=== PATIENT | female | born 1945 | race Caucasian/White ===

== ENCOUNTER 2021-08-13 20:13 | Emergency (ER) | payer MEDICARE ==
[2021-08-13] MEDS ORDERED: Sodium Chloride 0.9% 1000 ML 1,000 ML IV SCH (21:30)
[2021-08-13] MEDS ORDERED: Sodium Chloride 0.9% 1000 ML 1,000 ML ONE (21:37)
--- NOTE | 2021-08-13 21:40 | ERPHSYRPT ---
- History of Present Illness Time Seen by Provider: 08/13/21 20:20 Source: patient Exam Limitations: no limitations Patient Subjective Stated Complaint: I fell in the bathroom and hit the side of my face on the bathtub and it bounced off and I hit the other side of my face on the tub Triage Nursing Assessment: pt was in bathroom at home and getting ready to sit down on the toilet. Pt states, "I got a little dizzy and I fell hitting the side of my face on the tub and it bounced off and i hit the other side of my face". Pt was at her sons house when this happened, a bit of a unfamiliar place. Pt denies any pain at this time, no swelling to face noted, no bruises noted. Pt denies any loc. Physician History: Patient is a 75-year-old female presents to emergency department for evaluation of near syncope. Patient states she was at home preparing to sit onto the toilet when she became acutely dizzy fell forward hitting her face onto the wall. Family is concerned. Family states that patient has been speaking to her siblings that are both . Patient states that she believes that it is appropriate to speak to people. Patient understands that her son is concerned but she feels that people are still around you. This is her belief according to patient. Patient denies chest pain. No nausea or vomiting. No diaphoresis. Symptoms are mild to moderate in intensity. No specific w orsening improving factors. Patient voices no other complaints or concerns at this time. Timing/Duration: today Severity: moderate Modifying Factors: Improves With: nothing Associated Symptoms: other (Dizziness) Allergies/Adverse Reactions: Penicillins Allergy (Mild, Verified 08/13/21 20:26) Rash strawberry Adverse Reaction (Intermediate, Verified 08/13/21 20:27) Swelling of Eyelids aspirin Adverse Reaction (Mild, Verified 08/13/21 20:26) Vomiting Home Medications: Carbamazepine [Carbamazepine ER] 300 mg PO BID 04/07/13 [History] Famotidine 20 mg PO DAILY 08/10/21 [History] Levothyroxine Sodium [Euthyrox] 1 tab PO DAILY 08/13/21 [History] Hx Tetanus, Diphtheria Vaccination/Date Given: No Hx Influenza Vaccination/Date Given: No Hx Pneumococcal Vaccination/Date Given: No Immunizations Up to Date: No Travel Risk - International Travel Have you traveled outside of the country in past 3 weeks: No - Coronavirus Screening Are you exhibiting any of the following symptoms?: No Close contact with a COVID-19 positive Pt in past 14-21 Days: No - Vaccine Status Have you recieved a Covid-19 vaccination: No - Review of Systems Constitutional: No Symptoms, No Fever, No Chills Eyes: No Symptoms Ears, Nose, & Throat: No Symptoms Respiratory: No Symptoms, No Cough, No Dyspnea Cardiac: No Symptoms, No Chest Pain, No Edema, No Syncope Abdominal/Gastrointestinal: No Symptoms, No Abdominal Pain, No Nausea, No Vomiting, No Diarrhea Genitourinary Symptoms: No Symptoms, No Dysuria Musculoskeletal: No Symptoms, No Back Pain, No Neck Pain Skin: No Symptoms, No Rash Neurological: No Symptoms, No Dizziness, No Focal Weakness, No Sensory Changes Psychological: No Symptoms Endocrine: No Symptoms Hematologic/Lymphatic: No Symptoms Immunological/Allergic: No Symptoms All Other Systems: Reviewed and Negative - Past Medical History Pertinent Past Medical History: Yes Neurological History: Other ENT History: No Pertinent History Cardiac History: No Pertinent History Respiratory History: No Pertinent History Endocrine Medical History: No Pertinent History Musculoskeletal History: No Pertinent History GI Medical History: GERD History: No Pertinent History Psycho-Social History: No Pertinent History Female Reproductive Disorders: No Pertinent History Other Medical History: TRIGEMINAL NEURALGIA - Past Surgical History Past Surgical History: Yes Neuro Surgical History: No Pertinent History Cardiac: No Pertinent History Respiratory: No Pertinent History Gastrointestinal: No Pertinent History Genitourinary: No Pertinent History Musculoskeletal: Joint Replacement, Orthopedic Surgery Female Surgical History: No Pertinent History Other Surgical History: L arm fx repair lt shoulder - Social History Smoking Status: Never smoker Exposure to second hand smoke: No Drug Use: none Patient Lives Alone: No - Female History Hx Now: No - Nursing Vital Signs Nursing Vital Signs: Initial Vital Signs Temperature 98.7 F 08/13/21 20:15 Pulse Rate 105 H 08/13/21 20:15 Respiratory Rate 24 08/13/21 20:15 Blood Pressure 149/118 08/13/21 20:15 O2 Sat by Pulse Oximetry 98 08/13/21 20:15 Pain Scale Pain Intensity 0 - Physical Exam General Appearance: no apparent distress, alert Eye Exam: PERRL/EOMI, eyes nml inspection Ears, Nose, Throat Exam: normal ENT inspection, TMs normal, pharynx normal, moist mucous membranes Neck Exam: normal inspection, non-tender, supple, full range of motion Respiratory Exam: normal breath sounds, lungs clear, airway intact, No respiratory distress Cardiovascular Exam: regular rate/rhythm, normal heart sounds, normal peripheral pulses Gastrointestinal/Abdomen Exam: soft, normal bowel sounds, No tenderness, No mass Back Exam: normal inspection, normal range of motion, No CVA tenderness, No vertebral tenderness Extremity Exam: normal inspection, normal range of motion, pelvis stable Neurologic Exam: alert, oriented x 3, cooperative, normal mood/affect, sensation nml, other (Patient is nonambulatory.), No motor deficits Skin Exam: normal color, warm, dry, No rash Lymphatic Exam: No adenopathy SpO2 Interpretation: normal SpO2: 97 O2 Delivery: Room Air - Course Nursing assessment & vital signs reviewed: Yes EKG Interpreted by Me: RATE (100), Sinus Tach, NORMAL AXIS, NORMAL INTERVALS - CT Exams Head CT Interpretation: Discussed w/radiologist (CT head reveals moderate calcified i ntracranial atherosclerotic vessel disease. Otherwise no acute findings.) Ordered Tests: Active Orders 24 hr Category Date Time Status Radio Electronics Technician STAT Care 08/13/21 21:19 Active EKG-ER Only STAT Care 08/13/21 21:18 Active IV Insertion STAT Care 08/13/21 21:18 Active Pulse Oximetry (ED) STAT Care 08/13/21 21:18 Active CHEST 1 VIEW (PORTABLE) Stat Exams 08/13/21 21:18 Taken HEAD WITHOUT CONTRAST [CT] Stat Exams 08/13/21 21:20 Taken CBC W DIFF Stat Lab 08/13/21 21:45 Completed CMP Stat Lab 08/13/21 21:45 Completed CULTURE,URINE Stat Lab 08/13/21 22:28 Received TROPONIN Q3H Lab 08/13/21 21:45 Completed TROPONIN Q3H Lab 08/14/21 00:25 Received TROPONIN Q3H Lab 08/14/21 03:30 Ordered TROPONIN Q3H Lab 08/14/21 06:30 Ordered TROPONIN Q3H Lab 08/14/21 09:30 Ordered UA W/RFX UR CULTURE Stat Lab 08/13/21 22:28 Completed Medication Summary Generic Name Dose Route Start Last Admin Trade Name Freq PRN Reason Stop Dose Admin Sodium Chloride 1,000 mls @ 50 mls/hr 08/13/21 21:30 12/02/21 21:39 Sodium Chloride 0.9% 1000 Ml IV 09/12/21 21:29 50 mls/hr .Q20H BRADEN Administration Discontinued Medications Generic Name Dose Route Start Last Admin Trade Name Fab PRN Reason Stop Dose Admin Trimethoprim/Sulfamethoxazole 1 tab 08/13/21 23:37 08/13/21 23:40 Smz/Tmp Ds Tablet 1 Tablet PO 08/13/21 23:38 1 tab STAT STA Administration Trimethoprim/Sulfamethoxazole Confirm 08/13/21 23:38 Smz/Tmp Ds Tablet 1 Tablet Administered 08/13/21 23:39 Dose 1 tab PO .MyPrepApp-MED ONE Lab/Rad Data: Laboratory Result Diagrams 08/13/21 21:45 08/13/21 21:45 Laboratory Results 08/13/21 08/13/21 08/13/21 Range/Units 22:28 21:45 21:45 WBC (4.0-10.5) K/mm3 RBC (4.1-5.4) M/mm3 Hgb (12.0-16.0) gm/dl Hct (35-47) % MCV (78-100) fl MCH (26-32) pg MCHC (32-36) g/dl RDW (11.5-14.0) % Plt Count (150-450) K/mm3 MPV (7.5-11.0) fl Gran % (36.0-66.0) % Eos # (Auto) (0-0.5) Absolute Lymphs (auto) (1.0-4.6) Absolute Monos (auto) (0.0-1.3) Lymphocytes % (24.0-44.0) % Monocytes % (0.0-12.0) % Eosinophils % (0.00-5.0) % Basophils % (0.0-0.4) % Absolute Granulocytes (1.4-6.9) Basophils # (0-0.4) Sodium 138 (137-145) mmol/L Potassium 3.9 (3.5-5.1) mmol/L Chloride 102 (98-107) mmol/L Carbon Dioxide 27 (22-30) mmol/L Anion Gap 12.9 (5-15) MEQ/L BUN 10 (7-17) mg/dL Creatinine 0.69 (0.52-1.04) mg/dL Estimated GFR > 60.0 ML/MIN Glucose 141 H (74-106) mg/dL Calcium 8.3 L (8.4-10.2) mg/dL Total Bilirubin 0.60 (0.2-1.3) mg/dL AST 45 H (14-36) U/L ALT 26 (0-35) U/L Alkaline Phosphatase 102 (38-126) U/L Troponin I < 0.012 (0.000-0.034) ng/mL Serum Total Protein 7.0 (6.3-8.2) g/dL Albumin 4.2 (3.5-5.0) g/dL Urine Color MELVA (YELLOW) Urine Appearance CLOUDY (CLEAR) Urine pH 5.0 (5-6) Ur Specific [place] 1.021 (1.005-1.025) Urine Protein 100 (Negative) Urine Ketones SMALL (NEGATIVE) Urine Blood NEGATIVE (0-5) Byron/ul Urine Nitrite NEGATIVE (NEGATIVE) Urine Bilirubin NEGATIVE (NEGATIVE) Urine Urobilinogen 2 (0-1) mg/dL Ur Leukocyte Esterase LARGE (NEGATIVE) Urine WBC (Auto) 51-100 (0-5) /HPF Urine RBC (Auto) 3-5 (0-2) /HPF U Epithel Cells (Auto) RARE (FEW) /HPF Urine Bacteria (Auto) PACKED (NEGATIVE) /HPF Urine Mucus (Auto) SLIGHT (NEGATIVE) /HPF Urine Culture Reflexed YES (NO) Urine Glucose NEGATIVE (NEGATIVE) mg/dL 08/13/21 Range/Units 21:45 WBC 3.8 L (4.0-10.5) K/mm3 RBC 3.97 L (4.1-5.4) M/mm3 Hgb 13.1 (12.0-16.0) gm/dl Hct 41.0 (35-47) % MCV 103.3 H (78-100) fl MCH 33.0 H (26-32) pg MCHC 32.0 (32-36) g/dl RDW 12.6 (11.5-14.0) % Plt Count 106 L (150-450) K/mm3 MPV 9.2 (7.5-11.0) fl Gran % 66.2 H (36.0-66.0) % Eos # (Auto) 0 (0-0.5) Absolute Lymphs (auto) 0.92 L (1.0-4.6) Absolute Monos (auto) 0.36 (0.0-1.3) Lymphocytes % 24.1 (24.0-44.0) % Monocytes % 9.4 (0.0-12.0) % Eosinophils % 0.0 (0.00-5.0) % Basophils % 0.3 (0.0-0.4) % Absolute Granulocytes 2.53 (1.4-6.9) Basophils # 0.01 (0-0.4) Sodium (137-145) mmol/L Potassium (3.5-5.1) mmol/L Chloride (98-107) mmol/L Carbon Dioxide (22-30) mmol/L Anion Gap (5-15) MEQ/L BUN (7-17) mg/dL Creatinine (0.52-1.04) mg/dL Estimated GFR ML/MIN Glucose (74-106) mg/dL Calcium (8.4-10.2) mg/dL Total Bilirubin (0.2-1.3) mg/dL AST (14-36) U/L ALT (0-35) U/L Alkaline Phosphatase (38-126) U/L Troponin I (0.000-0.034) ng/mL Serum Total Protein (6.3-8.2) g/dL Albumin (3.5-5.0) g/dL Urine Color (YELLOW) Urine Appearance (CLEAR) Urine pH (5-6) Ur Specific [place] (1.005-1.025) Urine Protein (Negative) Urine Ketones (NEGATIVE) Urine Blood (0-5) Byron/ul Urine Nitrite (NEGATIVE) Urine Bilirubin (NEGATIVE) Urine Urobilinogen (0-1) mg/dL Ur Leukocyte Esterase (NEGATIVE) Urine WBC (Auto) (0-5) /HPF Urine RBC (Auto) (0-2) /HPF U Epithel Cells (Auto) (FEW) /HPF Urine Bacteria (Auto) (NEGATIVE) /HPF Urine Mucus (Auto) (NEGATIVE) /HPF Urine Culture Reflexed (NO) Urine Glucose (NEGATIVE) mg/dL - Progress Progress: improved Progress Note: Patient reassessed. She feels much better. Patient is nonambulatory. Work-up reveals a urinary tract infection. Patient treated with oral Bactrim. CT head negative for acute intracranial pathology. Mild leukopenia. Mild thrombocytopenia. A prescription for Bactrim was forwarded to patient's pharmacy. Patient's near syncope appears to have been valsalva induced. 08/14/21 00:58 Portions of this note were created with voice recognition technology. There may be grammatical, spelling, punctuation or sound alike errors Counseled pt/family regarding: lab results, diagnosis, need for follow-up, rad results - Departure Departure Disposition: Home Clinical Impression: UTI (urinary tract infection), Leukopenia, Thrombocytopenia, Vasovagal near syncope, Dizziness Condition: Stable Critical Care Time: No Referrals: ANGELO STACK MD [Primary Care Provider] - Follow up/PCP as directed Additional Instructions: Discharge/Care Plan LAURA BENZ was seen on 08/14/21 in the Emergency Room. The patient was counseled regarding Diagnosis,Lab results, Imaging studies, need for follow up and when to return to the Emergency Room. Prescriptions given: Discharge Note I have spoken with the patient and/or caregivers. I have explained the patient's condition, diagnosis and treatment plan based on the information available to me at this time. I have answered the patient's and/or caregiver's questions and addressed any concerns. The patient and/or caregivers have as good understanding of the patient's diagnosis, condition and treatment plan as can be expected at this point. The vital signs have been stable. The patient's condition is stable and appropriate for discharge from the emergency department. The patient will pursue further outpatient evaluation with the primary care physician or other designated or consulting physician as outlined in the pieter schwab instructions. The patient and/or caregivers are agreeable to this plan of care and follow-up instructions have been explained in detail. The patient and/or caregivers have received these instruction. The patient/and or caregivers are aware that any significant change in condition or worsening of symptoms should prompt an immediate return to this or the closest emergency department or call 911. Prescriptions: Smz/Tmp Ds Tablet [Bactrim Ds Tablet] 1 udtab PO BID 7 Days #14 tablet
[2021-08-13 21:59] LABS: Absolute Neutrophil Ct (ANC) 2.53 (1.4-6.9); BASOPHIL % 0.3 % (0.0-0.4); Basophil (Absolute #) 0.01 (0-0.4); Eosinophil (Absolute #) 0 (0-0.5); Hemoglobin 13.1 gm/dl (12.0-16.0); Lymphocyte (Absolute #) 0.92 (1.0-4.6); Lymphocytes % 24.1 % (24.0-44.0); Mean Cell Volume 103.3 fl (78-100); Mean Platelet Volume 9.2 fl (7.5-11.0); Monocyte (Absolute #) 0.36 (0.0-1.3); Monocytes % 9.4 % (0.0-12.0); Neutrophil % 66.2 % (36.0-66.0); Platelet Count 106 K/mm3 (150-450); Red Blood Count 3.97 M/mm3 (4.1-5.4); Red Cell Distribution Width 12.6 % (11.5-14.0); White Blood Count 3.8 K/mm3 (4.0-10.5)
[2021-08-13 22:14] LABS: ALBUMIN 4.2 g/dL (3.5-5.0); ALKALINE PHOSPHATASE 102 U/L (38-126); ANION GAP 12.9 MEQ/L (5-15); BLOOD UREA NITROGEN 10 mg/dL (7-17); CHLORIDE 102 mmol/L (98-107); Calcium 8.3 mg/dL (8.4-10.2); Carbon Dioxide 27 mmol/L (22-30); Creatinine 1 0.69 mg/dL (0.52-1.04); EST GLOMERULAR FILTRATION RATE > 60.0 ML/MIN; Glucose 141 mg/dL (74-106); Potassium 3.9 mmol/L (3.5-5.1); SGOT/AST 45 U/L (14-36); SGPT/ALT 26 U/L (0-35); SODIUM 138 mmol/L (137-145)
[2021-08-13 23:08] LABS: Appearance CLOUDY (CLEAR); Bacteria PACKED /HPF (NEGATIVE); Bilirubin NEGATIVE (NEGATIVE); Blood NEGATIVE Ery/ul (0-5); Epithelial Cells RARE /HPF (FEW); Glucose NEGATIVE (NEGATIVE); Ketones SMALL (NEGATIVE); Leukocyte Esterase LARGE (NEGATIVE); Mucus SLIGHT /HPF (NEGATIVE); Nitrite NEGATIVE (NEGATIVE); Protein,Urine Dip 100 (Negative); Specific Gravity 1.021 (1.005-1.025); Urobilinogen 2 mg/dL (0-1); WBC 51-100 /HPF (0-5)
[2021-08-13] MEDS ORDERED: BACTRIM DS TABLET PO STA (23:37)
[2021-08-13] MEDS ORDERED: BACTRIM DS TABLET PO ONE (23:38)
[2021-08-14 01:17] VITALS: BP 173/83; PULSE 106
[2021-08-14 01:26] VITALS: O2SAT 97
--- NOTE | 2021-08-14 12:31 | XRAY ---
Exam: AP upright portable chest film from 08/13/2021. Comparison: None. Indication: Syncope. Findings: The transverse heart size appears within normal limits. There is mild tortuosity of the ascending thoracic aorta. The remainder of the bere and mediastinal structures appears unremarkable. The lungs are adequately inflated. No air space infiltrates, vascular congestion, pneumothorax, or pleural fluid is seen. No significant interstitial lung changes are seen. 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 Impression: 1. No acute cardiopulmonary disease is seen.
--- NOTE | 2021-08-14 12:39 | XRAY ---
Exam: CT of the head without IV contrast from 08/13/2021. CTDI: 53.92 mGy Comparison: None. Indication: 75-year-old female with injury/trauma; fall; consciousness not specified. Technique: Non-IV contrast axial images were obtained through the brain. Reconstructed coronal and sagittal images were created and reviewed. Findings: The ventricles appear of normal size. No focal mass effect or midline shift is seen. The curran matter-white matter interfaces appear unremarkable. No acute intracranial bleed or abnormal extra-axial fluid collection is seen. No low attenuation infarct is evident. Some vascular calcification is seen within the distal right vertebral artery. I also note mild atherosclerotic vascular calcification within both carotid siphons. The calvarium of the skull appears intact without evidence of fracture. The paranasal sinuses reveal minimal mucosal thickening within both maxillary sinuses and the ethmoid sinuses. No air-fluid levels are seen. The mastoid air cells are clear without effusion. The middle ear cavities appear unremarkable. Impression: 1. No acute intracranial bleed or other acute intracranial process is seen. 2. Minimal chronic paranasal sinus disease, as discussed.
== END 2021-08-14 01:57 | disposition home or self-care (01) ==
LOC: ED 20:13
DX: N39.0 Urinary tract infection, site not specified (principal); D72.819 Decreased white blood cell count, unspecified; D69.6 Thrombocytopenia, unspecified; R55 Syncope and collapse; R42 Dizziness and giddiness; W18.30XA Fall on same level, unspecified, initial encounter; Y92.002 Bathroom of unspecified non-institutional (private) residence as the place of occurrence of the external cause
CPT/HCPCS: 36000; 36415; 70450; 71045; 80053; 81001; 84484; 85025; 87077; 87086; 87186; 93005; 93041; 94760; 99284; A9270-GY

== ENCOUNTER 2021-08-17 11:26 | Observation (INO) | payer MEDICARE ==
--- NOTE | 2021-08-17 11:32 | ERPHSYRPT ---
- History of Present Illness Time Seen by Provider: 08/17/21 11:34 Source: patient Exam Limitations: no limitations Physician History: Patient is a 75-year-old female presents to our ED via EMS for evaluation of a cough and vomiting. Family concerned that patient may have pneumonia per EMS. Patient was in our ED 4 days ago. At that time patient was evaluated for a fa ll. She was sitting on a toilet got dizzy fell forward and hit her head. Patient was diagnosed with UTI. Patient currently on Bactrim. Patient denies pain at the present time. Patient states she has this persistent cough and she is concerned she may have pneumonia. No diarrhea. No fever. Patient voices no other complaints or concerns at this time. Timing/Duration: yesterday Severity: moderate Modifying Factors: Improves With: nothing Associated Symptoms: denies symptoms Allergies/Adverse Reactions: Penicillins Allergy (Mild, Verified 08/17/21 11:34) Rash strawberry Adverse Reaction (Intermediate, Verified 08/17/21 11:34) Swelling of Eyelids aspirin Adverse Reaction (Mild, Verified 08/17/21 11:34) Vomiting Home Medications: Carbamazepine [Carbamazepine ER] 300 mg PO BID 04/07/13 [History] Levothyroxine Sodium [Euthyrox] 1 tab PO DAILY 08/13/21 [History] Hx Tetanus, Diphtheria Vaccination/Date Given: No Hx Influenza Vaccination/Date Given: No Hx Pneumococcal Vaccination/Date Given: No Travel Risk - Vaccine Status Have you recieved a Covid-19 vaccination: No - Review of Systems Constitutional: No Symptoms, No Fever, No Chills Eyes: No Symptoms Ears, Nose, & Throat: No Symptoms Respiratory: No Symptoms, No Cough, No Dyspnea Cardiac: No Symptoms, No Chest Pain, No Edema, No Syncope Abdominal/Gastrointestinal: No Symptoms, No Abdominal Pain, No Nausea, No Vomiting, No Diarrhea Genitourinary Symptoms: No Symptoms, No Dysuria Musculoskeletal: No Symptoms, No Back Pain, No Neck Pain Skin: No Symptoms, No Rash Neurological: No Symptoms, No Dizziness, No Focal Weakness, No Sensory Changes Psychological: No Symptoms Endocrine: No Symptoms Hematologic/Lymphatic: No Symptoms Immunological/Allergic: No Symptoms All Other Systems: Reviewed and Negative - Past Medical History Pertinent Past Medical History: Yes Neurological History: Other ENT History: No Pertinent History Cardiac History: No Pertinent History Respiratory History: No Pertinent History Endocrine Medical History: No Pertinent History Musculoskeletal History: No Pertinent History GI Medical History: GERD History: No Pertinent History Psycho-Social History: No Pertinent History Female Reproductive Disorders: No Pertinent History Other Medical History: TRIGEMINAL NEURALGIA - Past Surgical History Past Surgical History: Yes Neuro Surgical History: No Pertinent History Cardiac: No Pertinent History Respiratory: No Pertinent History Gastrointestinal: No Pertinent History Genitourinary: No Pertinent History Musculoskeletal: Joint Replacement, Orthopedic Surgery Female Surgical History: No Pertinent History Other Surgical History: L arm fx repair lt shoulder - Social History Smoking Status: Never smoker Exposure to second hand smoke: No Drug Use: none Patient Lives Alone: No - Nursing Vital Signs Nursing Vital Signs: Initial Vital Signs Temperature 97.5 F 08/17/21 11:26 Pulse Rate 94 H 08/17/21 11:26 Respiratory Rate 18 08/17/21 11:26 Blood Pressure 150/76 08/17/21 11:26 O2 Sat by Pulse Oximetry 97 08/17/21 11:26 Pain Scale Pain Intensity 0 - Physical Exam General Appearance: no apparent distress, alert Eye Exam: PERRL/EOMI, eyes nml inspection, No scleral icterus Ears, Nose, Throat Exam: normal ENT inspection, TMs normal, pharynx normal, moist mucous membranes Neck Exam: normal inspection, non-tender, supple, full range of motion Respiratory Exam: normal breath sounds, lungs clear, airway intact, No respiratory distress Cardiovascular Exam: regular rate/rhythm, normal heart sounds, normal peripheral pulses Gastrointestinal/Abdomen Exam: soft, normal bowel sounds, No tenderness, No mass Back Exam: normal inspection, normal range of motion, No CVA tenderness, No vertebral tenderness Extremity Exam: normal inspection, normal range of motion, pelvis stable Neurologic Exam: alert, oriented x 3, cooperative, normal mood/affect, nml cerebellar function, nml station & gait, sensation nml, No motor deficits Skin Exam: normal color, warm, dry, No rash Lymphatic Exam: No adenopathy SpO2 Interpretation: normal SpO2: 98 O2 Delivery: Room Air - Course Nursing assessment & vital signs reviewed: Yes - Radiology Exams Chest X-ray Interpretation: Teleradiologist Report (There appears to be some new asymmetric increased infiltrative lung markings at the left lung base as compared to 08/13/2021. This is consistent with pneumonia) Ordered Tests: Active Orders 24 hr Category Date Time Status EKG-ER Only STAT Care 08/17/21 13:15 Active IV Insertion STAT Care 08/17/21 11:32 Active CHEST 1 VIEW (PORTABLE) Stat Exams 08/17/21 11:32 Completed CBC W DIFF Stat Lab 08/17/21 11:45 Completed CMP Stat Lab 08/17/21 11:45 Completed TROPONIN Routine Lab 08/17/21 11:45 Completed Transfer Order Routine Transfer 08/17/21 Ordered Medication Summary Generic Name Dose Route Start Last Admin Trade Name Fab PRN Reason Stop Dose Admin Sodium Chloride 1,000 mls @ 100 mls/hr 08/17/21 11:45 08/17/21 11:48 Sodium Chloride 0.9% 1000 Ml IV 09/16/21 11:44 100 mls/hr .Q10H BRADEN Administration Levofloxacin/Dextrose 500 mg in 100 mls @ 100 mls/hr 08/17/21 14:27 08/17/21 14:32 Levofloxacin 500mg/100ml D5w IV 08/17/21 15:26 100 ml/hr STAT STA 100 mls/hr Administration Discontinued Medications Generic Name Dose Route Start Last Admin Trade Name Fab PRN Reason Stop Dose Admin Calcium Gluconate 1,000 mg 08/17/21 13:14 08/17/21 14:32 Calcium Gluconate 1000 Mg/10 Ml Vial IV 08/17/21 13:15 1,000 mg STAT ONE Administration Calcium Gluconate Confirm 08/17/21 14:28 Calcium Gluconate 1000 Mg/10 Ml Vial Administered 08/17/21 14:29 Dose 1,000 mg IV .STK-MED ONE Levofloxacin/Dextrose Confirm 08/17/21 14:28 Levofloxacin 500mg/100ml D5w Administered 08/17/21 14:29 Dose 500 mg in 100 mls @ ud IV .STK-MED ONE Levofloxacin 500 mg 08/17/21 13:12 08/17/21 14:26 Levofloxacin 500 Mg Tablet PO 08/17/21 13:13 Not Given STAT ONE Ondansetron HCl 4 mg 08/17/21 11:33 08/17/21 11:47 Ondansetron Hcl 4 Mg/2 Ml Vial IV 08/17/21 11:34 4 mg STAT ONE Administration Ondansetron HCl Confirm 08/17/21 11:47 Ondansetron Hcl 4 Mg/2 Ml Vial Administered 08/17/21 11:48 Dose 4 mg .ROUTE .STK-MED ONE Lab/Rad Data: Laboratory Result Diagrams 08/17/21 11:45 08/17/21 11:45 Laboratory Results 08/17/21 08/17/21 08/17/21 Range/Units 13:39 11:45 11:45 WBC (4.0-10.5) K/mm3 RBC (4.1-5.4) M/mm3 Hgb (12.0-16.0) gm/dl Hct (35-47) % MCV (78-100) fl MCH (26-32) pg MCHC (32-36) g/dl RDW (11.5-14.0) % Plt Count (150-450) K/mm3 MPV (7.5-11.0) fl Gran % (36.0-66.0) % Eos # (Auto) (0-0.5) Absolute Lymphs (auto) (1.0-4.6) Absolute Monos (auto) (0.0-1.3) Lymphocytes % (24.0-44.0) % Monocytes % (0.0-12.0) % Eosinophils % (0.00-5.0) % Basophils % (0.0-0.4) % Absolute Granulocytes (1.4-6.9) Basophils # (0-0.4) Sodium 134 L (137-145) mmol/L Potassium 4.0 (3.5-5.1) mmol/L Chloride 98 (98-107) mmol/L Carbon Dioxide 27 (22-30) mmol/L Anion Gap 12.9 (5-15) MEQ/L BUN 9 (7-17) mg/dL Creatinine 0.89 (0.52-1.04) mg/dL Estimated GFR > 60.0 ML/MIN Glucose 146 H (74-106) mg/dL Calcium 7.9 L (8.4-10.2) mg/dL Total Bilirubin 0.70 (0.2-1.3) mg/dL AST 55 H (14-36) U/L ALT 25 (0-35) U/L Alkaline Phosphatase 85 (38-126) U/L Troponin I < 0.012 (0.000-0.034) ng/mL Serum Total Protein 6.5 (6.3-8.2) g/dL Albumin 3.8 (3.5-5.0) g/dL Influenza Type A Ag NEGATIVE (NEGATIVE) Influenza Type B Ag NEGATIVE (NEGATIVE) RSV (PCR) NEGATIVE (Negative) SARS-CoV-2 (PCR) POSITIVE A (NEGATIVE) 08/17/21 Range/Units 11:45 WBC 4.1 (4.0-10.5) K/mm3 RBC 3.56 L (4.1-5.4) M/mm3 Hgb 11.6 L (12.0-16.0) gm/dl Hct 36.2 (35-47) % MCV 101.7 H (78-100) fl MCH 32.6 H (26-32) pg MCHC 32.0 (32-36) g/dl RDW 13.5 (11.5-14.0) % Plt Count 106 L (150-450) K/mm3 MPV 9.5 (7.5-11.0) fl Gran % 66.1 H (36.0-66.0) % Eos # (Auto) 0 (0-0.5) Absolute Lymphs (auto) 1.01 (1.0-4.6) Absolute Monos (auto) 0.39 (0.0-1.3) Lymphocytes % 24.5 (24.0-44.0) % Monocytes % 9.4 (0.0-12.0) % Eosinophils % 0.0 (0.00-5.0) % Basophils % 0.0 (0.0-0.4) % Absolute Granulocytes 2.73 (1.4-6.9) Basophils # 0 (0-0.4) Sodium (137-145) mmol/L Potassium (3.5-5.1) mmol/L Chloride (98-107) mmol/L Carbon Dioxide (22-30) mmol/L Anion Gap (5-15) MEQ/L BUN (7-17) mg/dL Creatinine (0.52-1.04) mg/dL Estimated GFR ML/MIN Glucose (74-106) mg/dL Calcium (8.4-10.2) mg/dL Total Bilirubin (0.2-1.3) mg/dL AST (14-36) U/L ALT (0-35) U/L Alkaline Phosphatase (38-126) U/L Troponin I (0.000-0.034) ng/mL Serum Total Protein (6.3-8.2) g/dL Albumin (3.5-5.0) g/dL Influenza Type A Ag (NEGATIVE) Influenza Type B Ag (NEGATIVE) RSV (PCR) (Negative) SARS-CoV-2 (PCR) (NEGATIVE) - Progress Progress: improved Progress Note: Case discussed with Dr. Stack our patient's primary care physician who advises discontinuing the Bactrim and starting on Levaquin. Patient received an oral dose of Levaquin in our ED. A prescription for the same was forwarded to patient's pharmacy patient is requesting discharge. 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 Patient voices no other complaints at this time. She feels well. Vital stable. Kaitlynn hdez agrees to follow-up with Dr. Stack within 48 hours for reevaluation. She voices no other complaints or concerns at this time. Portions of this note were created with voice recognition technology. There may be grammatical, spelling, punctuation or sound alike errors 08/17/21 13:11 08/17/21 14:[address] Sharee Will see patient in: office Counseled pt/family regarding: lab results, diagnosis, need for follow-up, rad results - Departure Departure Disposition: Home Clinical Impression: Pneumonia, Megaloblastic anemia, Hypocalcemia, COVID-19 Condition: Stable Critical Care Time: No Referrals: ANGELO STACK MD [Primary Care Provider] - Follow up/PCP as directed Additional Instructions: Discharge/Care Plan LAURA BENZ was seen on 08/17/21 in the Emergency Room. The patient was counseled regarding Diagnosis,Lab results, Imaging studies, need for follow up and when to return to the Emergency Room. Prescriptions given: Discharge Note I have spoken with the patient and/or caregivers. I have explained the patient's condition, diagnosis and treatment plan based on the information available to me at this time. I have answered the patient's and/or caregiver's questions and addressed any concerns. The patient and/or caregivers have as good understanding of the patient's diagnosis, condition and treatment plan as can be expected at this point. The vital signs have been stable. The patient's condition is stable and appropriate for discharge from the emergency department. The patient will pursue further outpatient evaluation with the primary care physician or other designated or consulting physician as outlined in the discharge instructions. The patient and/or caregivers are agreeable to this plan of care and follow-up instructions have been explained in detail. The patient and/or caregivers have received these instruction. The patient/and or caregivers are aware that any significant change in condition or worsening of symptoms should prompt an immediate return to this or the closest emergency department or call 911. Prescriptions: Levofloxacin [Levaquin 500 MG Tablet] 500 mg PO DAILY 7 Days #7 tablet
[2021-08-17] MEDS ORDERED: Zofran 4 MG/2 ML VIAL IV ONE (11:33)
[2021-08-17] MEDS ORDERED: Sodium Chloride 0.9% 1000 ML 1,000 ML IV SCH (11:45)
[2021-08-17] MEDS ORDERED: Sodium Chloride 0.9% 1000 ML 1,000 ML ONE (11:47)
[2021-08-17] MEDS ORDERED: Zofran 4 MG/2 ML VIAL ONE (11:47)
[2021-08-17 12:01] LABS: Absolute Neutrophil Ct (ANC) 2.73 (1.4-6.9); Basophil (Absolute #) 0 (0-0.4); Eosinophil (Absolute #) 0 (0-0.5); Hematocrit 36.2 % (35-47); Hemoglobin 11.6 gm/dl (12.0-16.0); Lymphocyte (Absolute #) 1.01 (1.0-4.6); Lymphocytes % 24.5 % (24.0-44.0); Mean Cell Volume 101.7 fl (78-100); Mean Corpuscular Hemoglobin 32.6 pg (26-32); Mean Platelet Volume 9.5 fl (7.5-11.0); Monocyte (Absolute #) 0.39 (0.0-1.3); Monocytes % 9.4 % (0.0-12.0); Neutrophil % 66.1 % (36.0-66.0); Platelet Count 106 K/mm3 (150-450); Red Blood Count 3.56 M/mm3 (4.1-5.4); Red Cell Distribution Width 13.5 % (11.5-14.0); White Blood Count 4.1 K/mm3 (4.0-10.5)
[2021-08-17 12:08] LABS: ALBUMIN 3.8 g/dL (3.5-5.0); ALKALINE PHOSPHATASE 85 U/L (38-126); ANION GAP 12.9 MEQ/L (5-15); BLOOD UREA NITROGEN 9 mg/dL (7-17); CHLORIDE 98 mmol/L (98-107); Calcium 7.9 mg/dL (8.4-10.2); Carbon Dioxide 27 mmol/L (22-30); Creatinine 1 0.89 mg/dL (0.52-1.04); EST GLOMERULAR FILTRATION RATE > 60.0 ML/MIN; Glucose 146 mg/dL (74-106); SGOT/AST 55 U/L (14-36); SGPT/ALT 25 U/L (0-35); SODIUM 134 mmol/L (137-145); Total Protein 6.5 g/dL (6.3-8.2)
--- NOTE | 2021-08-17 12:50 | XRAY ---
Exam: AP upright portable chest film from 08/17/2021. Appearance and: AP upright portable chest film from 08/13/2021. Indication: 75-year-old female with ? pneumonia. Findings: The heart size is normal. There is some new asymmetric stringy infiltrate at the left lung base as compared to 08/13/2021. This could be due to pneumonia. The remainder of the upper two thirds of the left lung, as well as a right lung appear clear. No central vascular congestion, pneumothorax, or pleural fluid is seen. Respiratory tubing overlies the right lung apex. No acute osseous process is seen. A small portion of a metallic orthopedic device is seen overlying the proximal left humerus which in retrospect is unchanged. 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 Impression: 1. There appears to be some new asymmetric increased infiltrative lung markings at the left lung base as compared to 08/13/2021. This is consistent with pneumonia.
[2021-08-17] MEDS ORDERED: Levofloxacin 500 MG Tablet PO ONE (13:12)
[2021-08-17] MEDS ORDERED: Calcium Gluconate 10% 1000 MG IV ONE ×2 (13:14→14:28)
[2021-08-17 14:24] LABS: INFLUENZA A NEGATIVE (NEGATIVE); INFLUENZA B NEGATIVE (NEGATIVE); RESPIRATORY SYNCTIAL VIRUS NEGATIVE (Negative)
[2021-08-17] MEDS ORDERED: Levofloxacin 500MG/100ML D5W 500 MG/100 ML BAG IV STA (14:27)
[2021-08-17] MEDS ORDERED: Levofloxacin 500MG/100ML D5W 500 MG/100 ML BAG IV ONE (14:28)
[2021-08-17 14:29] LABS: SARS-CoV-2 Xpert Express POSITIVE (NEGATIVE)
[2021-08-17] MEDS ORDERED: Sensorcaine 0.25% 10 ML IJ ONE (15:57)
[2021-08-17] MEDS ORDERED: Zofran 4 MG/2 ML VIAL IV PRN (15:59)
[2021-08-17] MEDS ORDERED: MORPHINE SULFATE 4 MG INJ IV PRN (15:59)
[2021-08-17] MEDS: VENTOLIN COMMON CANISTER IH PRN ×2 (16:30→22:45)
--- NOTE | 2021-08-17 18:14 | PCM.HP ---
History of Present Illness - Chief Complaint Chief Complaint: cough and nausea vomiting for 1-2 days History of Present Illness: is a 75 year old female.presents to our ED via EMS for evaluation of a cough and vomiting. Family concerned that patient may have pneumonia per EMS. Patient was in our ED 4 days ago. At that time patient was evaluated for a fall. She was sitting on a toilet got dizzy fell forward and hit her head. Patient was diagnosed with UTI. Patient currently on Bactrim. Patient denies pain at the present time. Patient states she has this persistent cough and she is concerned she may have pneumonia. No diarrhea. No fever. Patient voices no other complaints or concerns at this time. - Review of Systems Constitutional: Lethargy, Malaise, Weakness, No Fever, No Chills Eyes: No Symptoms Ears, Nose, & Throat: No Symptoms Respiratory: Cough, Short Of Breath Cardiac: No Chest Pain, No Edema, No Syncope Abdominal/Gastrointestinal: Nausea, Vomiting, No Abdominal Pain, No Diarrhea Genitourinary Symptoms: No Dysuria Musculoskeletal: No Back Pain, No Neck Pain Skin: No Rash Neurological: No Dizziness, No Focal Weakness, No Sensory Changes Psychological: No Symptoms Endocrine: No Symptoms Hematologic/Lymphatic: No Symptoms Immunological/Allergic: No Symptoms Medications & Allergies Home Medications: Home Medication List Carbamazepine [Carbamazepine ER] 300 mg PO BID 04/07/13 [History Confirmed 08/17/21] Levothyroxine Sodium [Euthyrox] 1 tab PO DAILY 08/13/21 [History Confirmed 08/17/21] Famotidine 20 mg PO DAILY 08/17/21 [History Confirmed 08/17/21] Allergies/Adverse Reactions: Allergies Allergy/AdvReac Type Severity Reaction Status Date / Time Penicillins Allergy Mild Rash Verified 08/17/21 11:34 strawberry AdvReac Intermediate Swelling Verified 08/17/21 11:34 of Eyelids aspirin AdvReac Mild Vomiting Verified 08/17/21 11:34 - Past Medical History Past Medical History: Yes Neurological History: Other ENT History: No Pertinent History Cardiac History: No Pertinent History Respiratory History: No Pertinent History Endocrine Medical History: No Pertinent History Musculoskelatal History: No Pertinent History GI Medical History: GERD History: No Pertinent History Pyscho-Social History: No Pertinent History Reproductive Disorders: No Pertinent History Comment: TRIGEMINAL NEURALGIA - Past Surgical History Past Surgical History: Yes Neuro Surgical History: No Pertinent History Cardiac History: No Pertinent History Respiratory Surgery: No Pertinent History GI Surgical History: No Pertinent History Genitourinary Surgical Hx: No Pertinent History Musculskeletal Surgical Hx: Joint Replacement, Orthopedic Surgery Female Surgical History: No Pertinent History Other Surgical History: L arm fx repair lt shoulder - Social History Smoking Status: Never smoker Exposure to second hand smoke: No Alcohol: None Drug Use: none - Physical Exam Vital Signs: Vital Signs - 24 hr Temp Pulse Resp BP Pulse Ox 08/17/21 17:50 94 H 20 94 L 08/17/21 16:30 94 H 20 94 L 08/17/21 15:00 84 20 158/84 92 L 08/17/21 14:37 98 08/17/21 14:00 88 18 172/75 94 L 08/17/21 11:26 97.5 F 94 H 18 150/76 97 General Appearance: moderate distress, alert Neurologic Exam: alert, oriented x 3, cooperative, normal mood/affect, nml station & gait, sensation nml, No motor deficits Eye Exam: PERRL/EOMI, eyes nml inspection Ears, Nose, Throat Exam: normal ENT inspection, TMs normal, pharynx normal, moist mucous membranes Neck Exam: normal inspection, non-tender, supple, full range of motion Respiratory Exam: diminished breath sounds, crackles/rales, rhonchi, wheezing, No respiratory distress Cardiovascular Exam: regular rate/rhythm, normal heart sounds, normal peripheral pulses Gastrointestinal/Abdomen Exam: soft, normal bowel sounds, No tenderness, No mass Back Exam: normal inspection, normal range of motion, No CVA tenderness, No vertebral tenderness Extremity Exam: normal inspection, normal range of motion, pelvis stable Skin Exam: normal color, warm, dry, No rash Lymphatic Exam: No adenopathy Results - Labs Lab/Micro Results: Lab Results-Last 24 Hours 08/17/21 08/17/21 08/17/21 Range/Units 11:45 11:45 11:45 WBC 4.1 (4.0-10.5) K/mm3 RBC 3.56 L (4.1-5.4) M/mm3 Hgb 11.6 L (12.0-16.0) gm/dl Hct 36.2 (35-47) % MCV 101.7 H (78-100) fl MCH 32.6 H (26-32) pg MCHC 32.0 (32-36) g/dl RDW 13.5 (11.5-14.0) % Plt Count 106 L (150-450) K/mm3 MPV 9.5 (7.5-11.0) fl Gran % 66.1 H (36.0-66.0) % Eos # (Auto) 0 (0-0.5) Absolute Lymphs (auto) 1.01 (1.0-4.6) Absolute Monos (auto) 0.39 (0.0-1.3) Lymphocytes % 24.5 (24.0-44.0) % Monocytes % 9.4 (0.0-12.0) % Eosinophils % 0.0 (0.00-5.0) % Basophils % 0.0 (0.0-0.4) % Absolute Granulocytes 2.73 (1.4-6.9) Basophils # 0 (0-0.4) Sodium 134 L (137-145) mmol/L Potassium 4.0 (3.5-5.1) mmol/L Chloride 98 (98-107) mmol/L Carbon Dioxide 27 (22-30) mmol/L Anion Gap 12.9 (5-15) MEQ/L BUN 9 (7-17) mg/dL Creatinine 0.89 (0.52-1.04) mg/dL Estimated GFR > 60.0 ML/MIN Glucose 146 H (74-106) mg/dL Calcium 7.9 L (8.4-10.2) mg/dL Total Bilirubin 0.70 (0.2-1.3) mg/dL AST 55 H (14-36) U/L ALT 25 (0-35) U/L Alkaline Phosphatase 85 (38-126) U/L Troponin I < 0.012 (0.000-0.034) ng/mL Serum Total Protein 6.5 (6.3-8.2) g/dL Albumin 3.8 (3.5-5.0) g/dL Influenza Type A Ag (NEGATIVE) Influenza Type B Ag (NEGATIVE) RSV (PCR) (Negative) SARS-CoV-2 (PCR) (NEGATIVE) 08/17/21 Range/Units 13:39 WBC (4.0-10.5) K/mm3 RBC (4.1-5.4) M/mm3 Hgb (12.0-16.0) gm/dl Hct (35-47) % MCV (78-100) fl MCH (26-32) pg MCHC (32-36) g/dl RDW (11.5-14.0) % Plt Count (150-450) K/mm3 MPV (7.5-11.0) fl Gran % (36.0-66.0) % Eos # (Auto) (0-0.5) Absolute Lymphs (auto) (1.0-4.6) Absolute Monos (auto) (0.0-1.3) Lymphocytes % (24.0-44.0) % Monocytes % (0.0-12.0) % Eosinophils % (0.00-5.0) % Basophils % (0.0-0.4) % Absolute Granulocytes (1.4-6.9) Basophils # (0-0.4) Sodium (137-145) mmol/L Potassium (3.5-5.1) mmol/L Chloride (98-107) mmol/L Carbon Dioxide (22-30) mmol/L Anion Gap (5-15) MEQ/L BUN (7-17) mg/dL Creatinine (0.52-1.04) mg/dL Estimated GFR ML/MIN Glucose (74-106) mg/dL Calcium (8.4-10.2) mg/dL Total Bilirubin (0.2-1.3) mg/dL AST (14-36) U/L ALT (0-35) U/L Alkaline Phosphatase (38-126) U/L Troponin I (0.000-0.034) ng/mL Serum Total Protein (6.3-8.2) g/dL Albumin (3.5-5.0) g/dL Influenza Type A Ag NEGATIVE (NEGATIVE) Influenza Type B Ag NEGATIVE (NEGATIVE) RSV (PCR) NEGATIVE (Negative) SARS-CoV-2 (PCR) POSITIVE A (NEGATIVE) - Radiology Impressions Radiology Exams & Impressions: Radiology Procedures Category Date Time Status CHEST 1 VIEW (PORTABLE) Stat Exams 08/17/21 11:32 Completed Name: LAUAR BENZ Attending Physician: AUBRIE MEJIA IMAGING REPORT : [id number] Age: 75 Sex: F Location: ED Report #: [id number] Exam Date: 08/17/21 Status: REG ER Radiology #: Procedures: [id number] RAD/CHEST 1 VIEW (PORTABLE) Exam: AP upright portable chest film from 08/17/2021. Appearance and: AP upright portable chest film from 08/13/2021. Indication: 75-year-old female with ? pneumonia. Findings: The heart size is normal. There is some new asymmetric stringy infiltrate at the left lung base as compared to 08/13/2021. This could be due to pneumonia. The remainder of the upper two thirds of the left lung, as well as a right lung appear clear. No central vascular congestion, pneumothorax, or pleural fluid is seen. Respiratory tubing overlies the right lung apex. No acute osseous process is seen. A small portion of a metallic orthopedic device is seen overlying the proximal left humerus which in retrospect is unchanged. 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 Impression: 1. There appears to be some new asymmetric increased infiltrative lung markings at the left lung base as compared to 08/13/2021. This is consistent with pneumonia. Reported by: MAURICIO KENDRICK Signed by: MAURICIO KENDRICK Signed date/time: 08/17/21 1250 Copies to: AUBRIE MEJIA DIVYESH - Other Procedures and Tests Respiratory Therapy 08/17/21 16:46 Oxygen Nasal Cannula 2 lpm 08/17/21 16:47 Respiratory Therapy Assessment DAILY Assessment/Plan (1) COVID-19 Current Visit: Yes Status: Acute Code(s): U07.1 - COVID-19 (2) Pneumonia Current Visit: Yes Status: Acute Qualifiers: Pneumonia type: due to COVID-19 virus Qualified Code(s): U07.1 - COVID-19; J12.82 - Pneumonia due to coronavirus disease 2019 Assessment & Plan: Allergies Allergy/AdvReac Type Severity Reaction Status Date / Time Penicillins Allergy Mild Rash Verified 08/17/21 11:34 strawberry AdvReac Intermediate Swelling Verified 08/17/21 11:34 of Eyelids aspirin AdvReac Mild Vomiting Verified 08/17/21 11:34 Vital Signs (Last 24 hours) Temp Pulse Resp BP Pulse Ox 08/17/21 17:50 94 H 20 94 L 08/17/21 16:30 94 H 20 94 L 08/17/21 15:00 84 20 158/84 92 L 08/17/21 14:37 98 08/17/21 14:00 88 18 172/75 94 L 08/17/21 11:26 97.5 F 94 H 18 150/76 97 Home Medications Medication Instructions Recorded Confirmed Last Taken Type Famotidine 20 mg PO DAILY 08/17/21 08/17/21 Unknown History Current Medications Generic Name Dose Route Start Last Admin Trade Name Fab PRN Reason Stop Dose Admin Albuterol Sulfate 4 puff 08/17/21 15:59 08/17/21 16:30 Albuterol Common Canister Inhaler IH 09/16/21 15:58 4 puff Q4H PRN PRN Administration SHORTNESS OF BREATH/WHEEZING Carbamazepine 300 mg 08/17/21 22:00 Carbamazepine 200 Mg Tablet PO 09/16/21 21:59 BID BRADEN Famotidine 20 mg 08/18/21 10:00 Famotidine 20 Mg Tablet PO 09/17/21 09:59 DAILY BRADEN Sodium Chloride 1,000 mls @ 100 mls/hr 08/17/21 17:30 Sodium Chloride 0.9% 1000 Ml IV 09/16/21 17:29 .Q10H BRADEN Levothyroxine Sodium 25 mcg 08/18/21 10:00 Levothyroxine Sodium 25 Mcg Tablet PO 09/17/21 09:59 DAILY BRADEN Morphine Sulfate 4 mg 08/17/21 15:59 Morphine Sulfate 4 Mg/Ml Injection IV 08/22/21 15:58 Q4H PRN PRN PAIN Ondansetron HCl 4 mg 08/17/21 15:59 08/17/21 17:10 Ondansetron Hcl 4 Mg/2 Ml Vial IV 09/16/21 15:58 4 mg Q6H PRN PRN Administration NAUSEA/VOMITING Discontinued Medications Generic Name Dose Route Start Last Admin Trade Name Fab PRN Reason Stop Dose Admin Calcium Gluconate 1,000 mg 08/17/21 13:14 08/17/21 14:32 Calcium Gluconate 1000 Mg/10 Ml Vial IV 08/17/21 13:15 1,000 mg STAT ONE Administration Calcium Gluconate Confirm 08/17/21 14:28 Calcium Gluconate 1000 Mg/10 Ml Vial Administered 08/17/21 14:29 Dose 1,000 mg IV .STK-MED ONE Sodium Chloride 1,000 mls @ 100 mls/hr 08/17/21 11:45 08/17/21 11:48 Sodium Chloride 0.9% 1000 Ml IV 09/16/21 11:44 100 mls/hr .Q10H BRADEN Administration Levofloxacin/Dextrose 500 mg in 100 mls @ 100 mls/hr 08/17/21 14:27 08/17/21 15:32 Levofloxacin 500mg/100ml D5w IV 08/17/21 15:26 Infused STAT STA Infusion Levofloxacin/Dextrose Confirm 08/17/21 14:28 Levofloxacin 500mg/100ml D5w Administered 08/17/21 14:29 Dose 500 mg in 100 mls @ ud IV .STK-MED ONE Sodium Chloride Confirm 08/17/21 11:47 Sodium Chloride 0.9% 1000 Ml Administered 08/17/21 11:48 Dose 1,000 mls @ ud .ROUTE .STK-MED ONE Levofloxacin 500 mg 08/17/21 13:12 08/17/21 14:26 Levofloxacin 500 Mg Tablet PO 08/17/21 13:13 Not Given STAT ONE Ondansetron HCl 4 mg 08/17/21 11:33 08/17/21 11:47 Ondansetron Hcl 4 Mg/2 Ml Vial IV 08/17/21 11:34 4 mg STAT ONE Administration Ondansetron HCl Confirm 08/17/21 11:47 Ondansetron Hcl 4 Mg/2 Ml Vial Administered 08/17/21 11:48 Dose 4 mg .ROUTE .STK-MED ONE Intake & Output (Last 24 hours) 08/15/21 08/16/21 08/17/21 08/18/21 11:59 11:59 11:59 11:59 Weight 124.8 kg Laboratory Results (Last 24 hours) 08/17/21 08/17/21 08/17/21 13:39 11:45 11:45 WBC RBC Hgb Hct MCV MCH MCHC RDW Plt Count MPV Gran % Eos # (Auto) Absolute Lymphs (auto) Absolute Monos (auto) Lymphocytes % Monocytes % Eosinophils % Basophils % Absolute Granulocytes Basophils # Sodium 134 L Potassium 4.0 Chloride 98 Carbon Dioxide 27 Anion Gap 12.9 BUN 9 Creatinine 0.89 Estimated GFR > 60.0 Glucose 146 H Calcium 7.9 L Total Bilirubin 0.70 AST 55 H ALT 25 Alkaline Phosphatase 85 Troponin I < 0.012 Serum Total Protein 6.5 Albumin 3.8 Influenza Type A Ag NEGATIVE Influenza Type B Ag NEGATIVE RSV (PCR) NEGATIVE SARS-CoV-2 (PCR) POSITIVE A 08/17/21 11:45 WBC 4.1 RBC 3.56 L Hgb 11.6 L Hct 36.2 MCV 101.7 H MCH 32.6 H MCHC 32.0 RDW 13.5 Plt Count 106 L MPV 9.5 Gran % 66.1 H Eos # (Auto) 0 Absolute Lymphs (auto) 1.01 Absolute Monos (auto) 0.39 Lymphocytes % 24.5 Monocytes % 9.4 Eosinophils % 0.0 Basophils % 0.0 Absolute Granulocytes 2.73 Basophils # 0 Sodium Potassium Chloride Carbon Dioxide Anion Gap BUN Creatinine Estimated GFR Glucose Calcium Total Bilirubin AST ALT Alkaline Phosphatase Troponin I Serum Total Protein Albumin Influenza Type A Ag Influenza Type B Ag RSV (PCR) SARS-CoV-2 (PCR) Orders (Last 24 hours) Category Date Time Status Bedrest ROUTINE Activity 08/17/21 15:59 Active Furrier Designer STAT Care 08/17/21 15:59 Completed IV Insertion STAT Care 08/17/21 11:32 Completed Isolation, Initiate & Maintain Q6H Care 08/17/21 15:59 Completed Neuro Checks Q4H Care 08/17/21 15:[address] in Observation ROUTINE Care 08/17/21 15:59 Active Telemetry q4h Care 08/17/21 15:59 Active Vital Signs Q4H Care 08/17/21 15:59 Completed Consistent Carbohydrate Diet 1800 Calorie Diet 08/17/21 Dinner Active CHEST 1 VIEW (PORTABLE) Stat Exams 08/17/21 11:32 Completed CBC W DIFF AM.LAB Lab 08/18/21 04:00 Ordered CBC W DIFF Stat Lab 08/17/21 11:45 Completed CMP AM.LAB Lab 08/18/21 04:00 Ordered CMP Stat Lab 08/17/21 11:45 Completed TROPONIN Routine Lab 08/17/21 11:45 Completed Albuterol Common Canister [Ventolin Common Canister* Med 08/17/21 15:59 Active ] 4 puff IH Q4H PRN PRN Calcium Gluconate 1000 mg [Calcium Gluconate 10% 1000 Med 08/17/21 14:28 Discontinued MG] 1,000 mg IV .STK-MED ONE Calcium Gluconate 1000 mg [Calcium Gluconate 10% 1000 Med 08/17/21 13:14 Discontinued MG] 1,000 mg IV STAT ONE Carbamazepine 200 mg [Tegretol 200 MG] Med 08/17/21 22:00 Active 300 mg PO BID Famotidine 20 mg [Pepcid 20 MG] Med 08/18/21 10:00 Active 20 mg PO DAILY Levofloxacin [Levofloxacin 500MG/100ML D5W] Med 08/17/21 14:27 Discontinued 500 mg in 100 ml IV STAT Levofloxacin [Levofloxacin 500MG/100ML D5W] Med 08/17/21 14:28 Discontinued 500 mg in 100 ml IV UD Levofloxacin [Levofloxacin 500 MG Tablet] Med 08/17/21 13:12 Discontinued 500 mg PO STAT ONE Levothyroxine Sodium 25 Mcg [Synthroid 25 Mcg] Med 08/18/21 10:00 Active 25 mcg PO DAILY Morphine Sulfate 4 mg Inj Med 08/17/21 15:59 Active 4 mg IV Q4H PRN PRN NaCl 0.9% 1000 ml [Sodium Chloride 0.9% 1000 ML] 1,000 Med 08/17/21 11:47 Discontinued ml .ROUTE UD NaCl 0.9% 1000 ml [Sodium Chloride 0.9% 1000 ML] 1,000 Med 08/17/21 11:45 Discontinued ml IV 100 mls/hr NaCl 0.9% 1000 ml [Sodium Chloride 0.9% 1000 ML] 1,000 Med 08/17/21 17:30 Active ml IV 100 mls/hr Ondansetron HCl 4 mg/2 ml [Zofran 4 MG/2 ML VIAL] Med 08/17/21 11:47 Discontinued 4 mg .ROUTE .STK-MED ONE Ondansetron HCl 4 mg/2 ml [Zofran 4 MG/2 ML VIAL] Med 08/17/21 15:59 Active 4 mg IV Q6H PRN PRN Ondansetron HCl 4 mg/2 ml [Zofran 4 MG/2 ML VIAL] Med 08/17/21 11:33 Discontinued 4 mg IV STAT ONE Oxygen Nasal Cannula 2 lpm RT 08/17/21 16:46 Active Pulse Oximetry .continuos RT 08/17/21 16:46 Active Respiratory Therapy Assessment DAILY RT 08/17/21 16:47 Active Respiratory Therapy Consult ROUTINE RT 08/17/21 15:59 Completed Transfer Order Routine Transfer 08/17/21 Completed Patient Care Notes (Last 24 hours) 08/17/21 16:30 (created 08/17/21 17:55) SBAR Note by Lesli Carlisle SITUATION I am calling about LAURA BENZ the patient's code status is The problem I am calling about is: Called Dr Juarez regarding pt's home med list. Received new orders regarding pt's home med list. Dr Juarez made aware pt and pt's family are against any code routine meds. Dr Juarez wanted pt spoken to about meds again regarding she might as well go home if not receiving them. Spoke with pt and then called pt's laycare senior director creative services, Itzel, with Dr Juarez concerns. Itzel has since spoken Dr Juarez and family is now ok with pt's receiving Covid meds. Pt's son is now speaking with pt via cell phone. ASSESSMENT RECOMMENDATION Physician notified at 1755 New Orders received: Vital Signs (Last 4 hours) Pulse Resp BP Pulse Ox 08/17/21 17:50 94 H 20 94 L 08/17/21 16:30 94 H 20 94 L 08/17/21 15:00 84 20 158/84 92 L 08/17/21 14:37 98 08/17/21 14:00 88 18 172/75 94 L Intake and Output 12 Hours 08/17/21 08/17/21 06:59 18:59 Weight 124.8 kg Physical Assessment Mental Status Alert Patient Orientation Person,Place,Time Coma Scale Total 15 Breath Sounds [Anterior/ Wheezes,Rhonchi Posterior Bilateral Throughout ] Breath Sounds [Anterior Wheezes,Coarse Bilateral Throughout] Skin Temperature Warm Pain Scale (Last 12 Hours) Pain Intensity 0 Pain Intensity 0 Pain Intensity 0 Pain Intensity 0 Pain Intensity 0 Pain Intensity 0 PAST MEDICAL HISTORY Neurological History Other ENT History No Pertinent History Endocrine Medical History No Pertinent History Respiratory History No Pertinent History Cardiac History No Pertinent History GI Medical History GERD History No Pertinent History Reproductive Disorders No Pertinent History Pyscho-Social History No Pertinent History Communicable Disease No Pertinent History Comment TRIGEMINAL NEURALGIA Diet Order (Last 12 Hours) 08/17/21 Dinner Consistent Carbohydrate Diet 1800 Calorie Lab Results (Last 12 Hours) 08/17/21 08/17/21 08/17/21 Range/Units 13:39 11:45 11:45 WBC (4.0-10.5) K/mm3 RBC (4.1-5.4) M/mm3 Hgb (12.0-16.0) gm/dl Hct (35-47) % MCV (78-100) fl MCH (26-32) pg MCHC (32-36) g/dl RDW (11.5-14.0) % Plt Count (150-450) K/mm3 MPV (7.5-11.0) fl Gran % (36.0-66.0) % Eos # (Auto) (0-0.5) Absolute Lymphs (auto) (1.0-4.6) Absolute Monos (auto) (0.0-1.3) Lymphocytes % (24.0-44.0) % Monocytes % (0.0-12.0) % Eosinophils % (0.00-5.0) % Basophils % (0.0-0.4) % Absolute Granulocytes (1.4-6.9) Basophils # (0-0.4) Sodium 134 L (137-145) mmol/L Potassium 4.0 (3.5-5.1) mmol/L Chloride 98 (98-107) mmol/L Carbon Dioxide 27 (22-30) mmol/L Anion Gap 12.9 (5-15) MEQ/L BUN 9 (7-17) mg/dL Creatinine 0.89 (0.52-1.04) mg/dL Estimated GFR > 60.0 ML/MIN Glucose 146 H (74-106) mg/dL Calcium 7.9 L (8.4-10.2) mg/dL Total Bilirubin 0.70 (0.2-1.3) mg/dL AST 55 H (14-36) U/L ALT 25 (0-35) U/L Alkaline Phosphatase 85 (38-126) U/L Troponin I < 0.012 (0.000-0.034) ng/mL Serum Total Protein 6.5 (6.3-8.2) g/dL Albumin 3.8 (3.5-5.0) g/dL Influenza Type A Ag NEGATIVE (NEGATIVE) Influenza Type B Ag NEGATIVE (NEGATIVE) RSV (PCR) NEGATIVE (Negative) SARS-CoV-2 (PCR) POSITIVE A (NEGATIVE) 08/17/21 Range/Units 11:45 WBC 4.1 (4.0-10.5) K/mm3 RBC 3.56 L (4.1-5.4) M/mm3 Hgb 11.6 L (12.0-16.0) gm/dl Hct 36.2 (35-47) % MCV 101.7 H (78-100) fl MCH 32.6 H (26-32) pg MCHC 32.0 (32-36) g/dl RDW 13.5 (11.5-14.0) % Plt Count 106 L (150-450) K/mm3 MPV 9.5 (7.5-11.0) fl Gran % 66.1 H (36.0-66.0) % Eos # (Auto) 0 (0-0.5) Absolute Lymphs (auto) 1.01 (1.0-4.6) Absolute Monos (auto) 0.39 (0.0-1.3) Lymphocytes % 24.5 (24.0-44.0) % Monocytes % 9.4 (0.0-12.0) % Eosinophils % 0.0 (0.00-5.0) % Basophils % 0.0 (0.0-0.4) % Absolute Granulocytes 2.73 (1.4-6.9) Basophils # 0 (0-0.4) Sodium (137-145) mmol/L Potassium (3.5-5.1) mmol/L Chloride (98-107) mmol/L Carbon Dioxide (22-30) mmol/L Anion Gap (5-15) MEQ/L BUN (7-17) mg/dL Creatinine (0.52-1.04) mg/dL Estimated GFR ML/MIN Glucose (74-106) mg/dL Calcium (8.4-10.2) mg/dL Total Bilirubin (0.2-1.3) mg/dL AST (14-36) U/L ALT (0-35) U/L Alkaline Phosphatase (38-126) U/L Troponin I (0.000-0.034) ng/mL Serum Total Protein (6.3-8.2) g/dL Albumin (3.5-5.0) g/dL Influenza Type A Ag (NEGATIVE) Influenza Type B Ag (NEGATIVE) RSV (PCR) (Negative) SARS-CoV-2 (PCR) (NEGATIVE) Orders (Last 12 Hours) Category Date Time Status Bedrest ROUTINE Activity 08/17/21 15:59 Active Neuro Checks Q4H Care 08/17/21 15:[address] in Observation ROUTINE Care 08/17/21 15:59 Active Telemetry q4h Care 08/17/21 15:59 Active Consistent Carbohydrate Diet 1800 Calorie Diet 08/17/21 Dinner Active CBC W DIFF AM.LAB Lab 08/18/21 04:00 Ordered CMP AM.LAB Lab 08/18/21 04:00 Ordered Albuterol Common Canister [Ventolin Common Canister* Med 08/17/21 15:59 Active ] 4 puff IH Q4H PRN PRN Carbamazepine 200 mg [Tegretol 200 MG] Med 08/17/21 22:00 Active 300 mg PO BID Famotidine 20 mg [Pepcid 20 MG] Med 08/18/21 10:00 Active 20 mg PO DAILY Levothyroxine Sodium 25 Mcg [Synthroid 25 Mcg] Med 08/18/21 10:00 Active 25 mcg PO DAILY Morphine Sulfate 4 mg Inj Med 08/17/21 15:59 Active 4 mg IV Q4H PRN PRN NaCl 0.9% 1000 ml [Sodium Chloride 0.9% 1000 ML] 1,000 Med 08/17/21 17:30 Active ml IV 100 mls/hr Ondansetron HCl 4 mg/2 ml [Zofran 4 MG/2 ML VIAL] Med 08/17/21 15:59 Active 4 mg IV Q6H PRN PRN Oxygen Nasal Cannula 2 lpm RT 08/17/21 16:46 Active Pulse Oximetry .continuos RT 08/17/21 16:46 Active Respiratory Therapy Assessment DAILY RT 08/17/21 16:47 Active Active Visit Medications Generic Name Dose Route Start Last Admin Trade Name Freq PRN Reason Stop Dose Admin Albuterol Sulfate 4 puff 08/17/21 15:59 08/17/21 16:30 Albuterol Common Canister Inhaler IH 09/16/21 15:58 4 puff Q4H PRN PRN Administration SHORTNESS OF BREATH/WHEEZING Carbamazepine 300 mg 08/17/21 22:00 Carbamazepine 200 Mg Tablet PO 09/16/21 21:59 BID BRADEN Famotidine 20 mg 08/18/21 10:00 Famotidine 20 Mg Tablet PO 09/17/21 09:59 DAILY BRADEN Sodium Chloride 1,000 mls @ 100 mls/hr 08/17/21 17:30 Sodium Chloride 0.9% 1000 Ml IV 09/16/21 17:29 .Q10H BRADEN Levothyroxine Sodium 25 mcg 08/18/21 10:00 Levothyroxine Sodium 25 Mcg Tablet PO 09/17/21 09:59 DAILY BRADEN Morphine Sulfate 4 mg 08/17/21 15:59 Morphine Sulfate 4 Mg/Ml Injection IV 08/22/21 15:58 Q4H PRN PRN PAIN Ondansetron HCl 4 mg 08/17/21 15:59 08/17/21 17:10 Ondansetron Hcl 4 Mg/2 Ml Vial IV 09/16/21 15:58 4 mg Q6H PRN PRN Administration NAUSEA/VOMITING Home Medications Medication Instructions Recorded Confirmed Last Taken Type Famotidine 20 mg PO DAILY 08/17/21 08/17/21 Unknown History Initialized on 08/17/21 17:55 - END OF NOTE Code(s): J18.9 - PNEUMONIA, UNSPECIFIED ORGANISM
[2021-08-17] MEDS ORDERED: Combivent Inhaler COMMON CANISTER IH SCH (18:15)
[2021-08-17] MEDS ORDERED: ENOXAPARIN SODIUM SQ SCH (18:15)
[2021-08-17] MEDS ORDERED: TYLENOL 325 MG PO PRN ×2 (18:15→19:46)
[2021-08-17] MEDS: Sodium Chloride 0.9% 1000 ML 1,000 ML IV SCH (18:53)
[2021-08-17 18:58] LABS: Absolute Neutrophil Ct (ANC) 2.75 (1.4-6.9); BASOPHIL % 0.2 % (0.0-0.4); Basophil (Absolute #) 0.01 (0-0.4); Eosinophil % 0.2 % (0.00-5.0); Eosinophil (Absolute #) 0.01 (0-0.5); Hemoglobin 11.3 gm/dl (12.0-16.0); Lymphocyte (Absolute #) 1.11 (1.0-4.6); Lymphocytes % 25.9 % (24.0-44.0); Mean Corpuscular Hemoglobin 32.9 pg (26-32); Mean Corpuscular Hgb Concent. 32.3 g/dl (32-36); Mean Platelet Volume 9.7 fl (7.5-11.0); Monocyte (Absolute #) 0.41 (0.0-1.3); Monocytes % 9.6 % (0.0-12.0); Neutrophil % 64.1 % (36.0-66.0); Platelet Count 110 K/mm3 (150-450); Red Blood Count 3.43 M/mm3 (4.1-5.4); Red Cell Distribution Width 13.2 % (11.5-14.0); White Blood Count 4.3 K/mm3 (4.0-10.5)
[2021-08-17] MEDS ORDERED: ENOXAPARIN SODIUM SQ ONE (19:10)
[2021-08-17 19:17] LABS: INR 1.17 (0.8-3.0); PROTIME 13.8 SECONDS (9.4-12.5)
[2021-08-17] MEDS ORDERED: REMDESIVIR IV ONE (19:32)
[2021-08-17] MEDS ORDERED: Sodium Chloride 0.9% 250 ML 250 ML IV ONE (19:32)
[2021-08-17 19:41] LABS: ALBUMIN 3.9 g/dL (3.5-5.0); ALKALINE PHOSPHATASE 82 U/L (38-126); ANION GAP 12.6 MEQ/L (5-15); BLOOD UREA NITROGEN 8 mg/dL (7-17); CHLORIDE 101 mmol/L (98-107); Calcium 8.2 mg/dL (8.4-10.2); Carbon Dioxide 24 mmol/L (22-30); Creatinine 1 0.84 mg/dL (0.52-1.04); EST GLOMERULAR FILTRATION RATE > 60.0 ML/MIN; Glucose 133 mg/dL (74-106); NT PRO BNP 68.8 pg/mL (0-900); Potassium 3.8 mmol/L (3.5-5.1); SGOT/AST 50 U/L (14-36); SGPT/ALT 24 U/L (0-35); SODIUM 135 mmol/L (137-145); Total Protein 6.7 g/dL (6.3-8.2)
[2021-08-17] MEDS ORDERED: Ativan 1 MG PO PRN (19:44)
[2021-08-17] MEDS: HYDROCODONE-CHLORPHEN ER SUSP PO PRN (19:51)
[2021-08-17] MEDS ORDERED: REMDESIVIR 200 MG in Sodium Chloride 0.9% 250 ML 250 ML IV ONE (20:00)
[2021-08-17] MEDS: Pepcid 20 MG VIAL IV SCH (21:04)
[2021-08-17] MEDS: OLUMIANT PO SCH (21:04)
[2021-08-17] MEDS: Tegretol 200 MG PO SCH (21:05)
[2021-08-17] MEDS ORDERED: CARBAMAZEPINE 200 MG PO SCH (22:00)
[2021-08-17] MEDS ORDERED: solu-MEDROL ONE (23:17)
[2021-08-17] MEDS ORDERED: Sterile H2O 10 ml IJ ONE (23:18)
[2021-08-17] MEDS: solu-MEDROL 125 MG, Sterile H2O 10 ml 2 ML IV SCH ×2 (23:20)
[2021-08-18] MEDS ORDERED: solu-MEDROL ONE (04:10)
[2021-08-18] MEDS: solu-MEDROL 125 MG, Sterile H2O 10 ml 2 ML IV SCH ×2 (05:00)
[2021-08-18 06:30] LABS: Absolute Neutrophil Ct (ANC) 2.08 (1.4-6.9); Basophil (Absolute #) 0 (0-0.4); Eosinophil (Absolute #) 0 (0-0.5); Hematocrit 35.3 % (35-47); Hemoglobin 11.3 gm/dl (12.0-16.0); Lymphocyte (Absolute #) 1.12 (1.0-4.6); Lymphocytes % 33.6 % (24.0-44.0); Mean Cell Volume 102.9 fl (78-100); Mean Corpuscular Hemoglobin 32.9 pg (26-32); Mean Platelet Volume 9.4 fl (7.5-11.0); Monocyte (Absolute #) 0.13 (0.0-1.3); Monocytes % 3.9 % (0.0-12.0); Neutrophil % 62.5 % (36.0-66.0); Platelet Count 132 K/mm3 (150-450); Red Blood Count 3.43 M/mm3 (4.1-5.4); Red Cell Distribution Width 13.1 % (11.5-14.0); White Blood Count 3.3 K/mm3 (4.0-10.5)
[2021-08-18 06:41] LABS: ALBUMIN 3.9 g/dL (3.5-5.0); ALKALINE PHOSPHATASE 88 U/L (38-126); ANION GAP 12.1 MEQ/L (5-15); BLOOD UREA NITROGEN 9 mg/dL (7-17); CHLORIDE 103 mmol/L (98-107); Calcium 8.2 mg/dL (8.4-10.2); Carbon Dioxide 26 mmol/L (22-30); Creatinine 1 0.85 mg/dL (0.52-1.04); EST GLOMERULAR FILTRATION RATE > 60.0 ML/MIN; Glucose 185 mg/dL (74-106); SGOT/AST 52 U/L (14-36); SGPT/ALT 25 U/L (0-35); SODIUM 137 mmol/L (137-145); Total Protein 6.8 g/dL (6.3-8.2)
[2021-08-18] MEDS ORDERED: TYLENOL EXTRA STRENGTH 500 MG PO PRN (07:26)
[2021-08-18] MEDS: Sodium Chloride 0.9% 1000 ML 1,000 ML IV SCH ×2 (08:01→18:16)
[2021-08-18] MEDS: HYDROCODONE-CHLORPHEN ER SUSP PO PRN ×2 (08:01→22:19)
[2021-08-18] MEDS ORDERED: Ativan 1 MG PO PRN (09:06)
--- NOTE | 2021-08-18 09:13 | XRAY ---
Indication: Covid pneumonia. Comparison: One day earlier. Portable apical lordotic chest is now underinflated accentuating cardiopulmonary structures. Grossly stable left base infiltrate. Remaining heart and lungs unremarkable.
[2021-08-18] MEDS ORDERED: ROCEPHIN 1 Gm-D5w 50 ml Bag** 1 G/50 ML IVPB IV SCH (10:00)
[2021-08-18] MEDS ORDERED: Zithromax 500 MG/ 250 ML NaCl Premix 500 MG/250 ML IVPB IV SCH (10:00)
[2021-08-18] MEDS ORDERED: Pepcid 20 MG PO SCH (10:00)
[2021-08-18] MEDS: OLUMIANT PO SCH (10:17)
[2021-08-18] MEDS: SYNTHROID 25 MCG PO SCH (10:17)
[2021-08-18] MEDS: PROTONIX 40 MG IV IV SCH (10:17)
[2021-08-18] MEDS: Tegretol 200 MG PO SCH ×2 (10:18→21:10)
[2021-08-18] MEDS: Pepcid 20 MG VIAL IV SCH ×2 (10:18→21:10)
[2021-08-18] MEDS: solu-MEDROL IV SCH ×2 (11:54→17:59)
[2021-08-18] MEDS: ENOXAPARIN SODIUM SQ SCH (18:00)
[2021-08-18] MEDS: REMDESIVIR 100 MG in Sodium Chloride 0.9% 100 ML BAG 100 ML IV SCH (18:00)
[2021-08-19] MEDS: solu-MEDROL IV SCH ×5 (00:07→23:51)
[2021-08-19 05:22] LABS: Hematocrit 35.2 % (35-47); Hemoglobin 11.1 gm/dl (12.0-16.0); Mean Cell Volume 102.9 fl (78-100); Mean Corpuscular Hemoglobin 32.5 pg (26-32); Mean Corpuscular Hgb Concent. 31.5 g/dl (32-36); Mean Platelet Volume 9.2 fl (7.5-11.0); Platelet Count 167 K/mm3 (150-450); Red Blood Count 3.42 M/mm3 (4.1-5.4); Red Cell Distribution Width 12.8 % (11.5-14.0); White Blood Count 4.2 K/mm3 (4.0-10.5)
[2021-08-19 06:54] LABS: ALBUMIN 3.7 g/dL (3.5-5.0); ALKALINE PHOSPHATASE 88 U/L (38-126); BLOOD UREA NITROGEN 14 mg/dL (7-17); CHLORIDE 105 mmol/L (98-107); Calcium 8.5 mg/dL (8.4-10.2); Carbon Dioxide 26 mmol/L (22-30); Creatinine 1 0.77 mg/dL (0.52-1.04); EST GLOMERULAR FILTRATION RATE > 60.0 ML/MIN; Glucose 180 mg/dL (74-106); Potassium 4.4 mmol/L (3.5-5.1); SGOT/AST 49 U/L (14-36); SGPT/ALT 27 U/L (0-35); SODIUM 140 mmol/L (137-145); Total Protein 6.4 g/dL (6.3-8.2)
[2021-08-19] MEDS ORDERED: Sterile H2O 10 ml IJ ONE (07:35)
[2021-08-19] MEDS: VENTOLIN COMMON CANISTER IH PRN (07:38)
[2021-08-19] MEDS: SYNTHROID 25 MCG PO SCH (08:36)
[2021-08-19] MEDS: PROTONIX 40 MG IV IV SCH (08:36)
[2021-08-19] MEDS: OLUMIANT PO SCH (08:36)
[2021-08-19] MEDS: Pepcid 20 MG VIAL IV SCH ×2 (08:37→21:30)
[2021-08-19] MEDS: Tegretol 200 MG PO SCH ×3 (08:39→17:20)
[2021-08-19] MEDS: ENOXAPARIN SODIUM SQ SCH (17:19)
[2021-08-19] MEDS: REMDESIVIR 100 MG in Sodium Chloride 0.9% 100 ML BAG 100 ML IV SCH (17:19)
[2021-08-19] MEDS: Sodium Chloride 0.9% 1000 ML 1,000 ML IV SCH (17:19)
[2021-08-19] MEDS ORDERED: APRESOLINE 20 MG/ML INJ ONE (20:40)
[2021-08-19] MEDS: APRESOLINE 20 MG/ML INJ IV PRN (21:33)
[2021-08-19] MEDS ORDERED: Tegretol 200 MG PO SCH (22:00)
[2021-08-20] MEDS: HYDROCODONE-CHLORPHEN ER SUSP PO PRN (00:08)
[2021-08-20] MEDS: APRESOLINE 20 MG/ML INJ IV PRN (00:08)
[2021-08-20] MEDS: Tegretol 200 MG PO SCH ×2 (04:13→09:19)
[2021-08-20] MEDS ORDERED: Sterile H2O 10 ml IJ ONE (05:47)
[2021-08-20] MEDS: solu-MEDROL IV SCH (06:14)
[2021-08-20 07:51] VITALS: BP 164/90
[2021-08-20] MEDS: Sodium Chloride 0.9% 1000 ML 1,000 ML IV SCH (09:05)
[2021-08-20] MEDS: SYNTHROID 25 MCG PO SCH (09:07)
[2021-08-20] MEDS: OLUMIANT PO SCH (09:07)
[2021-08-20] MEDS: Pepcid 20 MG VIAL IV SCH (09:23)
[2021-08-20] MEDS: PROTONIX 40 MG IV IV SCH (09:24)
[2021-08-20 10:04] VITALS: PULSE 85; O2SAT 96
== END 2021-08-20 12:00 | disposition home or self-care (01) ==
LOC: ED 11:26 → MED SURG 15:56
PROVIDERS: ADMIT Family Medicine; ATTEND Family Medicine
DX: U07.1 COVID-19 (principal); J12.82 Pneumonia due to coronavirus disease 2019; E83.51 Hypocalcemia; D53.1 Other megaloblastic anemias, not elsewhere classified; Z20.828 Contact with and (suspected) exposure to other viral communicable diseases; Z79.899 Other long term (current) drug therapy
CPT/HCPCS: 0241U; 36415; 71045; 80053; 83880; 84484; 85025; 85027; 85379; 85610; 94640; 94762; 96374; 96375; 99285; 93268; J0360; J0610; J1650; J1956; J2405; J2930; A9270-GY; G0378

== ENCOUNTER 2022-01-04 08:29 | Day surgery (SDC) | payer MEDICARE ==
--- NOTE | 2021-08-17 09:55 | HP ---
DATE OF SURGERY: 08/17/2021 HISTORY OF PRESENT ILLNESS: The patient is a 75-year-old with some nausea and vomiting past two or three months worse recently. Ultrasound showed cholelithiasis. Worse with fatty foods. Denies any blood thinner or liver problems in the past. PAST MEDICAL HISTORY: Trigeminal neuralgia, hypothyroidism. PAST SURGICAL HISTORY: Left arm fracture surgery in the past. MEDICATIONS: Levothyroxine, famotidine, Carbamazepine. ALLERGIES: PENICILLIN. ASPIRIN. STRAWBERRY. FAMILY HISTORY: Cancer, myocardial infarction. SOCIAL HISTORY: Denies smoking or alcohol abuse. REVIEW OF SYSTEMS: Fourteen systems reviewed. No chest pain or palpitations. Other systems negative or noncontributory as above and per preadmission questionnaire. PHYSICAL EXAMINATION: GENERAL: No acute distress. HEENT: Sclerae nonicteric. NECK: No JVD. CHEST: Clear to auscultation. CVS: Regular rate and rhythm. ABDOMEN: Soft. No peritoneal signs. EXTREMITIES: No significant edema. NEURO: Alert, oriented, moving extremities symmetrically. PSYCH: Appropriate mood and affect. IMPRESSION: Acute exacerbation of chronic cholecystitis, symptomatic cholelithiasis. I feel the patient will benefit from cholecystectomy. Risks and benefits explained in detail including but not limited to bleeding or infection, risk of trocar injury or hernia, risk of bowel, bladder or blood vessel injury, risk of bile leak, bile duct injury, retained stone or sludge possibly requiring further procedure either open or ERCP, general risk of anesthesia, deep venous thrombosis, pulmonary embolism, pneumonia, perioperative risk of aches, pains, bloating, constipation and/or loose stools but not limited to. Possibility of no improvement from the procedure possibly requiring other studies, work up or procedures. She understands and agrees to the planned procedure, will proceed with laparoscopic cholecystectomy with possible open as an outpatient.
--- NOTE | 2022-01-04 08:17 | HP ---
DATE OF SURGERY: 01/04/2022 HISTORY OF PRESENT ILLNESS: The patient is a 76-year-old with history of some pain, nausea and vomiting, had cholelithiasis in the past canceled cholecystectomy in the past. She now desires to reschedule. Ultrasound showed cholelithiasis in the past. PAST MEDICAL HISTORY: Cholelithiasis back in May or August 31, 2021. History of trigeminal neuralgia in the past, some hypothyroidism. PAST SURGICAL HISTORY: ALLERGIES: ASPIRIN. PENICILLIN. STRAWBERRY. MEDICATIONS: Carbamazepine, Synthroid, famotidine. DICTATION CUT OFF HERE
[~2022-01-04 08:29] MED LIST: Lactated Ringers 1,000 ML IV ONE; Sensorcaine 0.25% 10 ML ONE
[2022-01-04] MEDS ORDERED: Lactated Ringers 1,000 ML IV SCH (09:00)
[2022-01-04 09:17] VITALS: PULSE 90; O2SAT 96
== END 2022-01-04 10:05 | disposition home or self-care (01) ==
LOC: SDC 08:29
PROVIDERS: ATTEND Surgery
DX: I10 Essential (primary) hypertension (principal); Z53.9 Procedure and treatment not carried out, unspecified reason

== ENCOUNTER 2022-03-29 08:24 | Day surgery (SDC) | payer MEDICARE ==
--- NOTE | 2022-03-29 08:04 | HP ---
DATE OF SURGERY: 03/29/2022 HISTORY OF PRESENT ILLNESS: The patient is a 76-year-old with acute exacerbation of chronic cholecystitis, symptomatic cholelithiasis. She had been previously scheduled for cholecystectomy. She had some blood pressure issues. She is now under control better and ready to reschedule. History of some nausea and vomiting. She had been scheduled in the past but had COVID and canceled prior to that. PAST MEDICAL HISTORY: Trigeminal neuralgia. COVID in the past. Hypertension. Hypothyroidism. PAST SURGICAL HISTORY: Left arm surgery in the past. MEDICATIONS: Carbamazepine, Synthroid, Zantac. ALLERGIES: PENICILLIN. ASPIRIN. STRAWBERRY. FAMILY HISTORY: Negative in regards to this problem. SOCIAL HISTORY: No smoking or alcohol abuse. REVIEW OF SYSTEMS: Fourteen systems reviewed. No chest pain or palpitations. Other systems negative or noncontributory as above and per preadmission questionnaire. PHYSICAL EXAMINATION: GENERAL: No acute distress. HEENT: Sclerae nonicteric. NECK: No JVD. CHEST: Equal excursion, nonlabored breathing. CVS: Regular rate and rhythm. ABDOMEN: Soft. No peritoneal signs. EXTREMITIES: No significant edema. NEURO: Alert, oriented, moving extremities symmetrically. PSYCH: Appropriate mood and affect. IMPRESSION: Acute exacerbation of chronic cholecystitis, symptomatic cholelithiasis, chronic cholecystitis. I feel the patient will benefit from cholecystectomy. She was shown the gallbladder pamphlet and risk sheet, explained the procedure in detail including but not limited to bleeding or infection, risk of trocar injury or hernia, risk of bowel leak, bile duct injury, retained stone or sludge possibly requiring further procedure either open or ERCP, general risk of anesthesia, deep venous thrombosis, pulmonary embolism, pneumonia, perioperative risk of aches, pains, bloating, constipation and/or loose stools possibly even chronic in nature but not limited to. She understands and agrees to the planned procedure, will proceed with laparoscopic cholecystectomy with possible open.
[2022-03-29] MEDS ORDERED: Lactated Ringers 1,000 ML IV ONE (08:40)
[2022-03-29] MEDS ORDERED: Sensorcaine 0.25% 10 ML ONE (08:40)
[2022-03-29] MEDS ORDERED: Lactated Ringers 1,000 ML IV SCH (09:30)
[2022-03-29] MEDS ORDERED: Levofloxacin 500MG/100ML D5W 500 MG/100 ML BAG IV ONE (09:30)
[2022-03-29] MEDS ORDERED: CLINDAMYCIN-D5W 900 MG/50 ML*** 900 MG/50 ML BAG IV ONE (09:30)
[2022-03-29] MEDS ORDERED: MEFOXIN 2 GM PREMIX** 2 GM/50 ML ML IV SCH (10:00)
[2022-03-29] MEDS ORDERED: Zofran 4 MG/2 ML VIAL ONE (10:32)
[2022-03-29] MEDS ORDERED: Xylocaine-Mpf 2% 5 Ml Vial ONE (10:32)
[2022-03-29] MEDS ORDERED: BRIDION 200MG/2ML IV ONE (10:32)
[2022-03-29] MEDS ORDERED: TORAdol 30 mg Injection ONE (10:32)
[2022-03-29] MEDS ORDERED: DIPRIVAN 200 MG/20 ML IV ONE (10:32)
[2022-03-29] MEDS ORDERED: Decadron 4 MG INJ ONE (10:32)
[2022-03-29] MEDS ORDERED: Zemuron 100 MG/10 ML ONE ×2 (10:32→11:40)
[2022-03-29] MEDS ORDERED: SUBLIMAZE 100 MCG/2 ML ONE (10:32)
[2022-03-29] MEDS ORDERED: ROBINUL ONE (11:01)
[2022-03-29] MEDS ORDERED: Ephedrine Sulfate 50 MG/ML ONE (11:05)
[2022-03-29 13:32] VITALS: O2SAT 93
[2022-03-29 14:00] VITALS: BP 174/88; PULSE 80
--- NOTE | 2022-03-30 09:38 | OP ---
SURGERY DATE/TIME: 03/29/2022 1051 PREOPERATIVE DIAGNOSIS: Acute exacerbation of chronic cholecystitis, symptomatic cholelithiasis. POSTOPERATIVE DIAGNOSIS: Acute exacerbation of chronic cholecystitis, symptomatic cholelithiasis. PROCEDURE: Laparoscopic cholecystectomy. SURGEON: Dr. Nick Villareal. ANESTHESIA: General. ESTIMATED BLOOD LOSS: Minimal. INDICATIONS: As noted above. Risks and benefits explained in detail but not limited to and consent obtained. DESCRIPTION OF PROCEDURE AND FINDINGS: The patient was taken to the operating room. General anesthesia induced. Abdomen prepped and draped in usual sterile fashion. After official time out and no disagreement with planned procedure, a transverse incision made at the supraumbilical area. Fascia grasped and pulled upward. Veress needle inserted and tested with saline. Pneumoperitoneum accomplished insufflating opening pressure of 0-15. A 5 mm bladeless port and camera were inserted without difficulty followed by two - 5 mm right upper quadrant ports and 11 mm epigastric port. She had extensive omental adhesions up over the gallbladder significantly chronically inflamed. Dissecting posterior, lateral to anterior fashion slowly and carefully the main cystic artery isolated directly over gallbladder wall clipped x3 and divided in usual fashion this opened up the angle. In the Diaz's pouch area there was almost a phrygian cap kind of flipping over on itself but it was still able to be carefully dissected going directly to the gallbladder. The cystic duct going directly to the Diaz's pouch directly to the gallbladder carefully isolated anteriorly and posteriorly. Given the extensive inflammatory reaction it was elected to go ahead and use 12 mm clip circulation librarian for added security. It was clipped x3 and divided in the usual fashion. The gallbladder is slowly and carefully dissected free from its dense attachment to the liver bed clipping additional oozing side branches off the cystic artery and cystic vein directly on the gallbladder wall as necessary. The gallbladder is slowly and carefully dissected free. Just prior to releasing final attachments to the anterior edge of the liver, the liver bed re-inspected. Clips noted in place in cystic duct and cystic artery stumps. No signs of any active bleeding or bile leakage. It was felt there was no benefit of drain placement. The gallbladder released from final attachments to anterior edge of the liver, placed in the bag pulled up and out the epigastric 12 mm port site enlarged slightly with a clamp. This was closed with puncture closure device with #1 Vicryl. Steri-Strips and sterile dressing applied. 0.25% Marcaine local injected along the skin incision fascial defect. The patient tolerated the procedure well. There no immediate complications. There was no family available to discuss the findings with after the procedure. I came in the room after I finished the second case, the findings were discussed with the family. I will see her back in the office next week. The computer was not working for prescriptions so script waiver number was placed on there.
== END 2022-03-29 14:05 | disposition home or self-care (01) ==
LOC: SDC 08:24
PROVIDERS: ATTEND Surgery
DX: K80.10 Calculus of gallbladder with chronic cholecystitis without obstruction (principal)
CPT/HCPCS: J1100; J1885; J1956; J2405; J2704; J3010